=== PATIENT | male | born 1940 | race Caucasian/White ===

== ENCOUNTER 2016-05-16 14:04 | Emergency (ER) | payer MEDICARE, BC ==
[~2016-05-16] VITALS: Ht 180.3 cm; Wt 95.2 kg
[~2016-05-16 14:04] MED LIST: LEVOTHYROXINE50 MCG PO; NAPROSYN500 MG PO; POMEGRANATE250 MG PO
[2016-05-16] MEDS ORDERED: OMEGA 3 FISH O1 EACH PO (17:06)
[2016-05-16] MEDS ORDERED: XANAX0.5 MG PO (17:07)
[2016-05-16] MEDS ORDERED: LAMASIL PO (17:07)
== END 2016-05-16 16:05 | disposition short-term general hospital (02) ==
LOC: ER 14:04
DX: N13.2 Hydronephrosis with renal and ureteral calculous obstruction (principal); F41.9 Anxiety disorder, unspecified; D49.59 Neoplasm of unspecified behavior of other genitourinary organ; Z88.1 Allergy status to other antibiotic agents; Z88.2 Allergy status to sulfonamides
CPT/HCPCS: J1885; J2175; J2405

== ENCOUNTER 2016-05-17 02:51 | Emergency (ER) | payer MEDICARE, BC ==
[~2016-05-17] VITALS: Ht 180.3 cm; Wt 99.8 kg
[~2016-05-17 02:51] MED LIST changes: +LAMASIL PO; +OMEGA 3 FISH O1 EACH PO; +XANAX0.5 MG PO
== END 2016-05-17 08:03 | disposition short-term general hospital (02) ==
LOC: ER 02:51
DX: N20.0 Calculus of kidney (principal)
CPT/HCPCS: J1170; J2405